=== PATIENT | female | born 1980 | race Caucasian/White ===

== ENCOUNTER 2017-01-02 12:41 | Emergency (ER) | payer OTHER ==
[~2017-01-02] VITALS: Ht 157.5 cm; Wt 98.0 kg
[~2017-01-02 12:41] MED LIST: MECL-77 PO
[2017-01-02 12:44] VITALS: Ht 157.5 cm; Wt 98.0 kg
--- NOTE | 2017-01-02 15:22 | RADRPT ---
PROCEDURE: XR Chest. CLINICAL INDICATION: Shortness of breath TECHNIQUE: PA and lateral views of the chest were obtained. COMPARISON: 10/25/2012 FINDINGS: The cardiomediastinal silhouette is within normal limits. The lungs are clear. No pleural effusion or pneumothorax is identified. Visualized osseous structures are grossly intact. IMPRESSION: No evidence of active cardiopulmonary disease. RPTAT: VV .Albert Valdovinos MD, MD Date Time Electronically viewed and signed by .Albert Valdovinos MD, on 01/02/2017 15:22 .O/
--- NOTE | 2017-01-02 15:23 | RADRPT ---
PROCEDURE: XR Ribs. CLINICAL INDICATION: Shortness of breath, with an TECHNIQUE: Two views of the bilateral ribs were obtained. COMPARISON: Chest radiographs 01/02/2017 FINDINGS: No rib fracture or other focal lesion is identified. The underlying lungs are unremarkable, without pleural effusion or pneumothorax seen. IMPRESSION: Unremarkable bilateral rib series. RPTAT: VV .Albert Valdovinos MD, MD Date Time Electronically viewed and signed by .Albert Valdovinos MD, on 01/02/2017 15:23 .O/
[2017-01-02] MEDS ORDERED: TIOT18CA INHALATION (15:55)
[2017-01-02] MEDS ORDERED: MOME13HF2 INHALATION (15:56)
[2017-01-02] MEDS ORDERED: ALBU8.5H3 INH (15:56)
--- NOTE | 2017-01-02 16:15 | ERD ---
ER Documentation Chief Complaint Date/Time DATE: 01/02/17 TIME: 16:06 Chief Complaint b/l rib pain x 2 weeks , feels sob at night h/o copd HPI This is a 36-year-old female presents to the ER stating that her lungs are "spasaming" 2 weeks ago. Patient is also complaining of bilateral rib pain. Patient has a history of COPD and she states that she smoked a lot, however she quit a year ago. Patient does admit to shortness of breath at night secondary to this. She does not have any medication because she is switching doctors. She denies any fevers or chills. She denies any trauma. She does admit to chest pain. ROS 12 point review of systems was done, all negative except per HPI. Medications Home Meds Active Scripts Albuterol Sulfate* (Proair HFA*) 8.5 Gm Hfa.aer.ad, 2 PUFF INH Q4, #1 INHALER Prov:ANDRES GUTHRIE Sebas 01/02/17 Mometasone-Formoterol (Dulera) 100-5 Mcg - 13 Gm Hfa.aer.ad, 2 PUFFS INHALATION BID, #1 INHALER Prov:EMI GUTHRIEGERMAN Mullen 01/02/17 Tiotropium [place]* (Spiriva*) 18 Mcg Cap.w.dev, 1 CAP INHALATION DAILY, #30 CAP Prov:ANDRES GUTHRIE Sebas 01/02/17 Meclizine Hcl* (Meclizine Hcl*) 25 Mg Tablet, 25 MG PO TID, #10 TAB Prov:DAQUAN CHRISTIANSEN 02/25/15 Allergies Allergies: Coded Allergies: No Known Allergy (Unverified , 01/02/17) PMhx/Soc History of Surgery: Yes (GASTRIC SURGERIES; C SECTION) Anesthesia Reaction: No Hx Neurological Disorder: No Hx Respiratory Disorders: Yes (ASTHMA; BRONCHITIS; LARYNGITIS) Hx Cardiac Disorders: No Hx Psychiatric Problems: No Hx Miscellaneous Medical Probl: Yes (GALLSTONES; TUBES TIED UP) Hx Alcohol Use: Yes Hx Substance Use: No Hx Tobacco Use: No Smoking Status: Never smoker Physical Exam Vitals Vital Signs Date Time Temp Pulse Resp B/P Pulse Ox O2 Delivery O2 Flow Rate FiO2 01/02/17 12:44 97.7 82 18 138/65 100 Physical Exam GENERAL: The patient is well developed and appropriate for usual state of health , in no apparent distress. HEENT: Atraumatic. Conjunctivae are pink. Pupils equal, round, and reactive to light. Extraocular muscles are grossly intact. Bilateral tympanic membranes are clear with no evidence of erythema, effusion or dulling of the light reflex. The oropharynx is clear with no erythema or exudates. NECK: C-spine is soft and supple. There is no cervical lymphadenopathy. CHEST: Clear to auscultation bilaterally. There are no rales, wheezes or rhonchi. HEART: Regular rate and rhythm. No murmurs, clicks, rubs or gallops. ABDOMEN: Soft, nontender and nondistended. Good bowel sounds. No rebound or guarding. No gross peritonitis. No gross organomegaly or masses. No Contreras sign or McBurney point tenderness. No pulsatile masses. BACK: No midline or flank tenderness. EXTREMITIES: Equal pulses bilaterally. There is no peripheral clubbing, cyanosis or edema. No focal swelling or erythema. Full range of motion. Grossly neurovascularly intact. NEURO: Alert and oriented. Cranial nerves II through XII are intact. Motor strength in all 4 extremities with 5/5 strength. Sensation grossly intact. Normal speech and gait. SKIN: There is no apparent rash or petechia. The skin is warm and dry. Procedures/MDM Differential diagnosis includes but is not limited to; STEMI, dissection, pneumothorax, PE, esophageal rupture, tamponade, pneumonia, pericarditis, GERD, musculoskeletal, endocarditis, anxiety. EKG was taken and read by [address] elevation or t wave inversions. Patient is likely having a COPD exacerbation. Patient will be sent home with her regular medications. Suspicion for pulmonary embolism is low. Patient's PERC criteria is 0. Patient for acute cardiac etiology is low. Patient is to follow-up with her primary care doctor within 1-2 days return to ER sooner if symptoms worsen. My medical decision making was shared with the patient she understands and agrees with plan. Departure Diagnosis: Primary Impression: Rib pain Condition: Stable Patient Instructions: What Is COPD? Referrals: [facility] (PCP) Additional Instructions: Call your primary care doctor TOMORROW for an appointment during the next 1-2 days.See the doctor sooner or return here if your condition worsens before your appointment time. ANDRES GUTHRIE January 02, 2017 16:15
[2017-01-02 16:19] VITALS: BP 145/93; PULSE 60; RESP 20
== END 2017-01-02 16:20 | disposition home or self-care (01) ==
LOC: FTE 12:41
DX: R07.81 Pleurodynia (principal); J45.909 Unspecified asthma, uncomplicated
CPT/HCPCS: 71020; 71110; 93005; Z7502

== ENCOUNTER 2017-10-16 17:51 | Emergency (ER) | END 2017-10-16 19:33 | disposition home or self-care (01) ==